=== PATIENT | female | born 1995 | race African-American/Black ===

== ENCOUNTER 2017-03-13 23:15 | Emergency (ER) | payer MEDICAID, OTHER ==
[~2017-03-13] VITALS: Ht 162.6 cm; Wt 96.0 kg
[~2017-03-13 23:15] MED LIST: DOXY100T PO
[2017-03-13 23:16] VITALS: BP 139/69; PULSE 79; RESP 16; TEMP 98.6; O2SAT 99
--- NOTE | 2017-03-13 23:43 | PD ---
HPI Chief Complaint: Injury Time Seen by Provider: 23:35 Travel History International Travel<30 days: No Contact w/Intl Traveler<30days: No Traveled to known affect area: No History of Present Illness HPI 21-year-old female here for evaluation of left forearm pain. The patient reports that she had an injury to her left forearm/wrist about a year ago. About 3 days ago while moving heavy boxes the patient felt a pop in her left wrist/distal forearm. She has had pain in this area since this time. Pain is moderate, constant, worse with movement and palpation. She denies any other injuries. [facility] Past Medical History Asthma: Yes Autoimmune Disease: No Cardiovascular Problems: No Developmental Delay: No Diminished Hearing: No Gastrointestinal Disorders: Yes Genitourinary: Yes Musculoskeletal: No Neurologic: No Psychiatric: No Respiratory: Yes (Asthma) Immunizations Current: Yes Ulcer: No ?: Not LMP: 01/17/17 Menopausal: No : 1 : 1 Social History Alcohol Use: No Tobacco Use: No Substance Use: Yes (MARIJUANA) Allergies-Medications (Allergen,Severity, Reaction): Coded Allergies: Morphine (Verified Allergy, Severe, Tachycardia, 03/13/17) Reported Meds & Prescriptions Reported Meds & Active Scripts Active Review of Systems Except as stated in HPI: all other systems reviewed are Neg Physical Exam Narrative GENERAL: Well-developed, well-nourished, comfortable, no apparent distress. SKIN: Focused skin assessment warm/dry. No lacerations, abrasions, or ecchymosis. CARDIOVASCULAR: Regular rate and rhythm. Bilateral distal radial pulses are brisk and equal. Capillary refill in left hand is less than 2 seconds. MUSCULOSKELETAL: Moderate left distal forearm and left wrist tenderness without obvious deformity. All compartments in left forearm are supple. Normal range of motion in left wrist and left hand. Left hand/upper extremity is neurovascularly intact. NEUROLOGICAL: Awake and alert. No obvious cranial nerve deficits. Motor grossly within normal limits. Normal speech. PSYCHIATRIC: Appropriate mood and affect; insight and judgment normal. Data Data Last Documented VS Vital Signs Date Time Temp Pulse Resp B/P Pulse Ox O2 Delivery O2 Flow Rate FiO2 03/13/17 23:16 98.6 79 16 139/69 99 Room Air Orders Forearm (2vws) (03/13/17 ) [facility] Medical Decision Making Medical Screen Exam Complete: Yes Emergency Medical Condition: Yes Differential Diagnosis Left wrist/forearm sprain versus fracture Narrative Course Left forearm x-ray: FINDINGS: Two view examination of the left forearm demonstrates no evidence of fracture or dislocation. Bony mineralization is normal. The soft tissue structures are intact. CONCLUSION: Negative trauma study Patient was made aware of x-ray findings. Her left wrist will be placed in a Velcro wrist splint. PMD follow-up this week. Patient informed on when to return to the emergency department. She verbalizes understanding and agreement with plan. Diagnosis Primary Impression: Left wrist sprain Qualified Code: S63.502A - Left wrist sprain, initial encounter Referrals: Andrew Harman Jr., MD 1 week Orthopedist Primary Care Physician 3 days Additional Instructions: Follow-up with a primary care physician or an orthopedic surgeon of your choice this week. Return to the emergency department for worsening symptoms or any other concerns. Disposition: 01 DISCHARGE HOME Condition: Stable Carlos Weir MD Mar 13, 2017 23:43
--- NOTE | 2017-03-13 23:58 | RADRPT ---
EXAM DATE/TIME: 03/13/2017 23:55 [place] COMPARISON: No previous studies available for comparison. INDICATIONS : Forearm pain after trauma. MEDICAL HISTORY : None. SURGICAL HISTORY : None. ENCOUNTER: Initial ACUITY: 1 day PAIN SCORE: 1/10 LOCATION: Left forearm FINDINGS: Two view examination of the left forearm demonstrates no evidence of fracture or dislocation. Bony m ineralization is normal. The soft tissue structures are intact. CONCLUSION: Negative trauma study. Chance Morejon MD on March 13, 2017 at 23:56 Board Certified Radiologist. This report was verified electronically.
== END 2017-03-14 00:19 | disposition home or self-care (01) ==
LOC: NEPD 23:15
DX: S63.502A Unspecified sprain of left wrist, initial encounter (principal); X58.XXXA Exposure to other specified factors, initial encounter
CPT/HCPCS: 73090; 99283; L3908

== ENCOUNTER 2017-07-14 01:58 | Emergency (ER) | payer MEDICAID, OTHER ==
[2017-07-14 01:59] VITALS: BP 136/85; PULSE 83; RESP 14; TEMP 98.7; O2SAT 99
[2017-07-14 02:28] VITALS: BP 143/72; PULSE 90; RESP 16; TEMP 98.5; O2SAT 99
[2017-07-14 02:53] VITALS: BP 143/72; PULSE 89; RESP 16
--- NOTE | 2017-07-14 02:58 | PD ---
HPI Chief Complaint: Related Problem Time Seen by Provider: 02:39 Travel History International Travel<30 days: No Contact w/Intl Traveler<30days: No Traveled to known affect area: No History of Present Illness HPI 22-year-old female 3 para 0 AB 1 complains of vaginal bleeding. Patient is about 7 weeks' . Patient was seen by a local clinic 3 days ago and had an ultrasound done at that time. Pelvic ultrasound confirms seven- week intrauterine . Patient has not seen an OB physician for this . Patient started having vaginal spotting tonight. Patient denies abdominal pain or pelvic pain. Patient denies any dysuria or frequency. Patient denies any fever chills. Patient's blood type A+. PFSH Past Medical History Asthma: Yes Autoimmune Disease: No Cardiovascular Problems: No Developmental Delay: No Diminished Hearing: No Gastrointestinal Disorders: Yes Genitourinary: Yes Musculoskeletal: No Neurologic: No Psychiatric: No Respiratory: Yes (Asthma) Immunizations Current: Yes Ulcer: No ?: LMP: 05/18/17 Menopausal: No : 1 : 1 Social History Alcohol Use: No Tobacco Use: No Substance Use: Yes (MARIJUANA) Allergies-Medications (Allergen,Severity, Reaction): Coded Allergies: morphine (Unverified Allergy, Severe, Tachycardia, 07/14/17) Reported Meds & Prescriptions Reported Meds & Active Scripts Active No Active Prescriptions or Reported Medications Review of Systems General / Constitutional: No: Fever Eyes: No: Visual changes HENT: No: Headaches Cardiovascular: No: Chest Pain or Discomfort Respiratory: No: Shortness of Breath Gastrointestinal: No: Abdominal Pain Genitourinary: Positive: Vaginal Bleeding, No: Dysuria Musculoskeletal: No: Pain Skin: No Rash Neurologic: No: Weakness Psychiatric: No: Depression Endocrine: No: Polydipsia Hematologic/Lymphatic: No: Easy Bruising Physical Exam Narrative GENERAL: Well-nourished, well-developed patient. SKIN: Focused skin assessment warm/dry. HEAD: Normocephalic. EYES: No scleral icterus. No injection or drainage. NECK: Supple, trachea midline. No JVD or lymphadenopathy. CARDIOVASCULAR: Regular rate and rhythm without murmurs, gallops, or rubs. RESPIRATORY: Breath sounds equal bilaterally. No accessory muscle use. GASTROINTESTINAL: Abdomen soft, non-tender, nondistended. MUSCULOSKELETAL: No cyanosis, or edema. BACK: Nontender without obvious deformity. No CVA tenderness. DRAGGER exam: Patient has some chronic discharge in the vaginal vault. The cervix is long and thick and closed. Uterus enlarged and nontender on palpation. No adnexal mass or tenderness. Data Data Last Documented VS Vital Signs Date Time Temp Pulse Resp B/P (MAP) Pulse Ox O2 Delivery O2 Flow Rate FiO2 07/14/17 02:28 98.5 90 16 143/72 (95) 99 Room Air MDM Medical Decision Making Medical Screen Exam Complete: Yes Emergency Medical Condition: Yes Differential Diagnosis Differential diagnosis including prednisone be, incomplete AB, completed AB, ectopic . Narrative Course 22-year-old female, 7 weeks , vaginal spotting. Procedures Procedure Narrative Emergency Department Pelvic ultrasound was performed with patient consent. The curvilinear probe was used in the transverse and sagittal views within the suprapubic region revealing single intrauterine . heart rate was active. Diagnosis Primary Impression: Threatened Patient Instructions: General Instructions Additional Instructions: vitamin is directed. Follow-up with local OB physician. Return if increase of vaginal bleeding, abdominal pelvic pain. Med/Other Pt SpecificInfo: No Meds Exist/No RX given Scripts No Active Prescriptions or Reported Meds Disposition: 01 DISCHARGE HOME Condition: Stable Narendra Hernandez MD Jul 14, 2017 02:58
== END 2017-07-14 03:19 | disposition home or self-care (01) ==
LOC: NEPE 01:58
DX: O20.0 Threatened abortion (principal); Z87.09 Personal history of other diseases of the respiratory system; Z87.19 Personal history of other diseases of the digestive system; Z87.448 Personal history of other diseases of urinary system; Z3A.01 Less than 8 weeks gestation of pregnancy
CPT/HCPCS: 99284

== ENCOUNTER 2017-10-15 23:02 | Emergency (ER) | payer MEDICAID ==
--- NOTE | 2017-10-15 23:58 | PD ---
HPI Chief Complaint Abdominal pain Date Seen: Oct 15, 2017 Time Seen: 23:54 Travel History International Travel<30 Days: No Contact w/Intl Traveler<30Days: No Known Affected Area: No History of Present Illness HPI 22-year-old 21 weeks 4 days complains of sharp stabbing abdominal pain that occurred around 9 PM earlier today after eating chicken which she perceived to be "" bad chicken" patient denies nausea vomiting, fever, vaginal bleeding, or contractions. Patient had normal movement. Weeks Gestation: 21 Para: 0 : 3 History Past Medical History Medical History: Denies Significant Hx Obstetric History Obstetric History SAB 1 EAB 1 Past Surgical History Surgical History: No Previous Surgery Family History Family History: Negative Social History Alcohol Use: No Tobacco Use: No Substance Abuse: No Allergies-Medications (Allergen,Severity, Reaction): Coded Allergies: morphine (Unverified Allergy, Severe, Tachycardia, 07/14/17) Home Meds No Active Prescriptions or Reported Meds Review of Systems Except as stated in HPI: all other systems reviewed are Neg Physical Exam Narrative GENERAL: Well-nourished, well-developed patient. SKIN: Warm and dry. HEAD: Normocephalic and atraumatic. EYES: No scleral icterus. No injection or drainage. ENT: No nasal drainage noted. Mucous membranes pink. Airway patent. NECK: Supple, trachea midline. No JVD. CARDIOVASCULAR: Regular rate and rhythm without murmurs, gallops, or rubs. RESPIRATORY: Breath sounds equal bilaterally. No accessory muscle use. ABDOMEN/GI: Abdomen soft, non-tender, bowel sounds present, no rebound, no guarding Gravid to [-] weeks size 20 Fundal Height: [-] GENITOURINARY: Deferred External Genitalia: intact and normal in appearance BUS glands: [-] Cervix: [-] Dilatation: [-] Effacement: [-] Station: [-] Presentation: [-] Membranes: [intact or ruptured] Uterine Contractions: [-] FHT's: 145 Doppler Category: [-] Baseline: [-] Reactive: [-] Variability: [-] Decels: [-] EXTREMITIES: No cyanosis or edema. BACK: Nontender without obvious deformity. No CVA tenderness. NEUROLOGICAL: Awake and alert. Motor and sensory grossly within normal limits. Five out of 5 muscle strength in all muscle groups. Normal speech. Data Data Vital Signs Reviewed: Yes MDM Medical Record Reviewed: Yes Plan 22-year-old at 21 weeks 4 days with some mild stomach upset after dinner No nausea vomiting or diarrhea at this point no signs of dehydration or labor Precautions were given, follow-up with OB provider Diagnosis Diagnosis: Primary Impression: 21 weeks gestation of Additional Impression: Abdominal pain during in second trimester Disposition: DISCHARGE HOME Scripts No Active Prescriptions or Reported Meds Brandee Lopez MD Oct 15, 2017 23:58
== END 2017-10-16 00:07 | disposition home or self-care (01) ==
LOC: HOBED 23:02
DX: O26.892 Other specified pregnancy related conditions, second trimester (principal); R10.9 Unspecified abdominal pain; Z3A.21 21 weeks gestation of pregnancy; Z88.5 Allergy status to narcotic agent
CPT/HCPCS: 99281

== ENCOUNTER 2017-10-29 18:12 | Emergency (ER) | payer MEDICAID ==
[~2017-10-29] VITALS: Ht 162.6 cm; Wt 105.0 kg
[2017-10-29 18:15] VITALS: BP 132/62; PULSE 105; RESP 18; TEMP 98.4; O2SAT 100
[2017-10-29] MEDS ORDERED: CLIN300C5 PO (18:33)
--- NOTE | 2017-10-29 18:38 | PD ---
HPI Chief Complaint: Oral / Dental Pain or Problem Time Seen by Provider: 18:32 Travel History International Travel<30 days: No Contact w/Intl Traveler<30days: No Traveled to known affect area: No History of Present Illness HPI Patient comes emergency department complaining of right lower molar dental pain that began last night describes as aching throbbing pain without radiation. Pain is worse with anything cold touching that area. Patient's been taking Tylenol along with rinsing her mouth with warm salt water gargles that is helped some. Patient reports that she last saw a dentist 6 months ago and had to reschedule her appointment last month. Patient denies any fevers, nausea, vomiting, neck pain, or difficulty swallowing. Patient is . Severity mild. PFSH Past Medical History Asthma: Yes Autoimmune Disease: No Cardiovascular Problems: No Developmental Delay: No Diminished Hearing: No Gastrointestinal Disorders: Yes Genitourinary: Yes Musculoskeletal: No Neurologic: No Psychiatric: No Respiratory: Yes (Asthma) Immunizations Current: Yes Ulcer: No ?: LMP: 05/17/17 Menopausal: No : 1 : 1 Social History Alcohol Use: No Tobacco Use: No Substance Use: Yes (MARIJUANA) Allergies-Medications (Allergen,Severity, Reaction): Coded Allergies: morphine (Unverified Allergy, Severe, Tachycardia, 07/14/17) Reported Meds & Prescriptions Reported Meds & Active Scripts Active Clindamycin (Clindamycin HCl) 300 Mg Cap 300 Mg PO Q6H 10 Days Review of Systems Except as stated in HPI: all other systems reviewed are Neg Physical Exam Narrative GENERAL: Well-developed, well nourished, in no acute distress, and non-ill appearing. SKIN: Focused skin assessment warm and dry. HEAD: Atraumatic. Normocephalic. EYES: Pupils equal and round. EOMI. No scleral icterus. No injection or drainage. ENT: No nasal bleeding or discharge. Mucous membranes pink and moist. Poor dentition with no visible or palpable abscess. Minimal soft tissue swelling over right mandible posteriorly. Floor the mouth, submandibular, and submental are all soft palpation. Patient swallowing on saliva and speaking full sentences without difficulty. NECK: Trachea midline. No cervical lymphadenopathy. Supple. No nuclear rigidity. RESPIRATORY: No accessory muscle use. No respiratory distress. MUSCULOSKELETAL: No obvious deformities. No clubbing. No cyanosis. No edema. Full range of motion. NEUROLOGICAL: Awake and alert. No obvious cranial nerve deficits. Motor grossly within normal limits. Normal speech. PSYCHIATRIC: Appropriate mood and affect; insight and judgment normal. Data Data Last Documented VS Vital Signs Date Time Temp Pulse Resp B/P (MAP) Pulse Ox O2 Delivery O2 Flow Rate FiO2 10/29/17 18:15 98.4 105 18 132/62 (85) 100 MDM Medical Decision Making Medical Screen Exam Complete: Yes Emergency Medical Condition: Yes Differential Diagnosis Dental abscess, dental infection, dentalgia Narrative Course The patient presented with dental pain. There is no fever. There is no significant facial swelling or evidence of cellulitis. There is poor dentition but no evidence of drainable abscess at this time. There is no evidence of significant deep or invading abscess at this time. The patient will be placed on antibiotics and pain medication. The patient was instructed to follow up with a dentist. The patient was given the dental referral sheet. Warnings were discussed with the patient regarding worsening of infection. The patient is to return if pain worsens, develops progressive swelling or facial redness or fever. The patient agrees with plan. Patient in no obvious distress upon re-evaluation. Patient was asked if they wanted to speak to my attending, which the patient did not wish to do at this time. Any questions/concerns in reference to patient diagnosis/condition discussed and clarified prior to patient's discharge. Reinforced sheer importance of close follow up with patient's primary physician or primary care clinic and/or dentist. Instructed patient to return to ED immediately, if symptoms return/worsen. Patient showed understanding of above instructions. Further instructions and recommendations were detailed in discharge paperwork. Patient ambulated without difficulty out of ED at discharge. Diagnosis Primary Impression: Dental infection Patient Instructions: Dental Abscess (GEN), Dental Caries (ED), General Instructions Additional Instructions: Follow-up with your primary care physician and dentist as soon as possible for reevaluation. Rinse mouth with warm salt water gargles. Take all medication as prescribed. Use [id number] Tylenol as needed for pain control. Follow instructions on the packaging. Return to the emergency department if symptoms get worse. Med/Other Pt SpecificInfo: Prescription(s) given Scripts Clindamycin (Clindamycin) 300 Mg Cap 300 MG PO Q6H for Infection for 10 Days, #40 CAP 0 Refills Prov: Carlos Weir MD 10/29/17 Disposition: 01 DISCHARGE HOME Condition: Stable Driss Calhoun Oct 29, 2017 18:38
== END 2017-10-29 19:31 | disposition home or self-care (01) ==
LOC: NEPD 18:12
DX: K04.7 Periapical abscess without sinus (principal); J45.909 Unspecified asthma, uncomplicated; F12.90 Cannabis use, unspecified, uncomplicated
CPT/HCPCS: 99283

== ENCOUNTER 2017-11-05 06:40 | Emergency (ER) | payer MEDICAID ==
[~2017-11-05] VITALS: Ht 162.6 cm; Wt 107.0 kg
[~2017-11-05 06:40] MED LIST changes: +CLIN300C5 PO; -DOXY100T PO
[2017-11-05 07:03] VITALS: BP 115/71; PULSE 113; RESP 16; TEMP 99; O2SAT 99
--- NOTE | 2017-11-05 07:19 | PD ---
HPI Chief Complaint: Skin Problem Time Seen by Provider: 07:18 Travel History International Travel<30 days: No Contact w/Intl Traveler<30days: No Traveled to known affect area: No History of Present Illness HPI 22-year-old female presents emergency department for evaluation of a urticarial- like rash over her trunk and extremities. Patient is being treated for dental abscess on clindamycin. She has been taking this for 2 days. She noticed the rash this morning. Denies any chest pain or tightness. No difficulty breathing. No sensation of oral swelling. Patient has no other symptoms to report. PFSH Past Medical History Asthma: Yes Autoimmune Disease: No Cardiovascular Problems: No Developmental Delay: No Diminished Hearing: No Gastrointestinal Disorders: Yes Genitourinary: Yes Musculoskeletal: No Neurologic: No Psychiatric: No Respiratory: Yes (Asthma) Immunizations Current: Yes Ulcer: No ?: Menopausal: No : 1 : 1 Social History Alcohol Use: No Tobacco Use: No Substance Use: Yes (MARIJUANA) Allergies-Medications (Allergen,Severity, Reaction): Coded Allergies: morphine (Verified Allergy, Severe, hives, 11/05/17) clindamycin (Verified Allergy, Intermediate, hives, 11/05/17) Reported Meds & Prescriptions Reported Meds & Active Scripts Active Penicillin V Potassium 500 Mg Tab 500 Mg PO Q6H 10 Days Clindamycin (Clindamycin HCl) 300 Mg Cap 300 Mg PO Q6H 10 Days Review of Systems Except as stated in HPI: all other systems reviewed are Neg Physical Exam Narrative GENERAL: Well-nourished, well-developed female patient, ambulatory and in no acute distress. SKIN: Focused skin assessment warm/dry. Urticarial-like rash over the trunk and extremities. No vesicle or pustule formation. HEAD: Normocephalic. EYES: No scleral icterus. No injection or drainage. ENT: Mucosa pink and moist. No erythema or exudates. No uvular edema. No uvular , palatal, or tonsillar deviation. Airway patent. Nasal turbinates appear normal without nasal blood, purulent drainage or septal hematoma. NECK: Supple, trachea midline. No JVD or lymphadenopathy. No stridor CARDIOVASCULAR: Regular rate and rhythm without murmurs, gallops, or rubs. RESPIRATORY: Breath sounds equal bilaterally. No accessory muscle use. Clear throughout GASTROINTESTINAL: Abdomen soft, non-tender, nondistended. MUSCULOSKELETAL: No cyanosis, or edema. BACK: Nontender without obvious deformity. No CVA tenderness. Data Data Last Documented VS Vital Signs Date Time Temp Pulse Resp B/P (MAP) Pulse Ox O2 Delivery O2 Flow Rate FiO2 11/05/17 08:35 97.8 77 16 120/81 (94) 100 Orders Orders Iv Access Insert/Monitor (11/05/17 07:25) Diphenhydramine Inj (Benadryl Inj) (11/05/17 07:30) Methylprednisolone So Succ Inj (Solumedr (11/05/17 07:30) Ed Discharge Order (11/05/17 08:27) MDM Medical Decision Making Medical Screen Exam Complete: Yes Emergency Medical Condition: Yes Medical Record Reviewed: Yes Differential Diagnosis Allergic reaction versus contact dermatitis versus folliculitis versus viral exanthem Narrative Course 22-year-old female presents emergency department for evaluation of an urticarial -like rash. History and physical exam is consistent with a drug eruption. Patient is advised to stop taking clindamycin. She will be started on penicillin for her dental abscess. I have encouraged follow-up with a primary care provider and return immediately with any acute worsening symptoms. Diagnosis Primary Impression: Urticaria Referrals: Primary Care Physician Patient Instructions: General Instructions, Urticaria (ED) Additional Instructions: Stop clindamycin Start new antibiotics today Follow-up with the primary care provider Return immediately with any acute worsening of symptoms Med/Other Pt SpecificInfo: Prescription(s) given, Med Stopped Scripts Penicillin V Potassium (Penicillin V Potassium) 500 Mg Tab 500 MG PO Q6H for Infection for 10 Days, #40 TAB 0 Refills Prov: Lubna Novoa 11/05/17 Disposition: 01 DISCHARGE HOME Condition: Stable Lubna Novoa Nov 05, 2017 07:19
[2017-11-05] MEDS ORDERED: methylPREDNISolone SOD SUCC 125 MG/2 ML VIAL IV PUSH ONE (07:30)
[2017-11-05] MEDS ORDERED: diphenhydrAMINE HCL 50 MG/ML VIAL IV PUSH ONE (07:30)
[2017-11-05] MEDS ORDERED: PENI500T PO (08:28)
[2017-11-05 08:35] VITALS: BP 120/81; TEMP 97.8
== END 2017-11-05 08:35 | disposition home or self-care (01) ==
LOC: NED 06:40 → NEPD 08:35
DX: L50.9 Urticaria, unspecified (principal); J45.909 Unspecified asthma, uncomplicated; F12.90 Cannabis use, unspecified, uncomplicated; Z88.5 Allergy status to narcotic agent
CPT/HCPCS: 96374; 96375; 99284; J1200; J2930

== ENCOUNTER 2018-01-03 22:39 | Emergency (ER) | payer MEDICAID ==
[~2018-01-03] VITALS: Ht 162.6 cm; Wt 101.0 kg
[~2018-01-03 22:39] MED LIST changes: +PENI500T PO
[2018-01-03 22:45] VITALS: BP 118/69; PULSE 104; RESP 16; TEMP 98.5; O2SAT 100
[2018-01-03 23:07] VITALS: BP 114/69; PULSE 94; RESP 18; O2SAT 100
--- NOTE | 2018-01-03 23:15 | PD ---
HPI Chief Complaint: Headache Time Seen by Provider: 22:52 Travel History International Travel<30 days: No Contact w/Intl Traveler<30days: No Traveled to known affect area: No History of Present Illness HPI The patient is a 22-year-old female who presents to the emergency department for intermittent headaches. Patient is 33 weeks per her report that is evaluated and followed by a pilot teacher. The patient states she has had some intermittent headaches over the superior occipital area over the last month. They are intermittent, they are not intractable, however, she did have elevated blood pressure earlier today. The patient was reading online and was afraid she may have preeclampsia. The patient states she went to [facility] and her blood pressure was in the 130s/80s. She then came to the emergency department. She states her headache is a 5/10, there is no photophobia, nausea , vomiting, neck pain, and no thunderclap quality. The patient's blood pressure had improved in the emergency department and she was relieved. She notes intermittent lower extremity edema to the legs, but denies any periorbital edema or edema to the fingers. This is her first , she denies any current nausea, vomiting, or abdominal pain. Symptoms are mild. PFSH Past Medical History Asthma: Yes Autoimmune Disease: No Cardiovascular Problems: No Developmental Delay: No Diminished Hearing: No Gastrointestinal Disorders: Yes Genitourinary: Yes Musculoskeletal: No Neurologic: No Psychiatric: No Respiratory: Yes (ASTHMA) Immunizations Current: Yes Ulcer: No Tetanus Vaccination: < 5 Years Influenza Vaccination: No ?: LMP: 05/17/18 Menopausal: No : 1 : 1 Social History Alcohol Use: No Tobacco Use: No Substance Use: Yes (MARIJUANA) Allergies-Medications (Allergen,Severity, Reaction): Coded Allergies: morphine (Verified Allergy, Severe, hives, 01/03/18) clindamycin (Verified Allergy, Intermediate, hives, 01/03/18) Reported Meds & Prescriptions Reported Meds & Active Scripts Active Penicillin V Potassium 500 Mg Tab 500 Mg PO Q6H 10 Days Clindamycin (Clindamycin HCl) 300 Mg Cap 300 Mg PO Q6H 10 Days Review of Systems Except as stated in HPI: all other systems reviewed are Neg Eyes: No: Blurred Vision, Visual changes HENT: Positive: Headaches, No: Neck Pain Cardiovascular: No: Chest Pain or Discomfort Respiratory: No: Shortness of Breath Gastrointestinal: No: Nausea, Vomiting, Abdominal Pain Musculoskeletal: Positive: Edema (Intermittent lower extremity edema) Physical Exam Narrative GENERAL: Awake, alert, nontoxic-appearing 22-year-old female who appears her stated age and is in no acute respiratory distress. SKIN: Focused skin assessment warm/dry. HEAD: Atraumatic. Normocephalic. EYES: Pupils equal and round. 3 mm bilateral and reactive. EOMs are intact. ENT: No nasal bleeding or discharge. Mucous membranes pink and moist. NECK: Trachea midline. No JVD. No tenderness of the cervical vertebrae. Full range of motion. No meningeal signs. CARDIOVASCULAR: Regular rate and rhythm. No murmur appreciated. Heart rate in the 90s. RESPIRATORY: No accessory muscle use. Clear to auscultation. Breath sounds equal bilaterally. GASTROINTESTINAL: Abdomen gravid. MUSCULOSKELETAL: No obvious deformities. No clubbing. No cyanosis. Trace edema lower extremities. No edema of the fingers noted. No periorbital edema noted. NEUROLOGICAL: Awake and alert. No obvious cranial nerve deficits. Motor grossly within normal limits. Normal speech. Nonfocal. PSYCHIATRIC: Appropriate mood and affect; insight and judgment normal. Data Data Last Documented VS Vital Signs Date Time Temp Pulse Resp B/P (MAP) Pulse Ox O2 Delivery O2 Flow Rate FiO2 01/03/18 23:07 94 18 100 Room Air 01/03/18 23:07 114/69 (84) 01/03/18 22:45 98.5 Orders Orders Ed Discharge Order (01/03/18 23:11) [facility] Medical Decision Making Medical Screen Exam Complete: Yes Emergency Medical Condition: Yes Medical Record Reviewed: Yes Differential Diagnosis Differential diagnosis includes tension headache, subarachnoid hemorrhage, preeclampsia, help syndrome, , migraine, intracranial hemorrhage, tumor. Narrative Course The patient had to several blood pressure readings that were within normal limits. Trace edema lower extremities but no significant edema to the fingers noted. I doubt preeclampsia. Patient declined Tylenol in the emergency department. She is advised to follow-up with an principal research economist. Return if symptoms worsen or progress. Diagnosis Primary Impression: Cephalgia Qualified Codes: R51 - Headache Patient Instructions: General Instructions Additional Instructions: Follow-up with an principal research economist. Return if symptoms worsen or progress. Elevate legs as needed. Tylenol as needed for intermittent headaches. Med/Other Pt SpecificInfo: No Change to Meds Disposition: 01 DISCHARGE HOME Condition: Stable Trent Galeana MD January 03, 2018 23:15
== END 2018-01-03 23:22 | disposition home or self-care (01) ==
LOC: PHED 22:39
DX: R51 Headache (principal); O26.893 Other specified pregnancy related conditions, third trimester; J45.909 Unspecified asthma, uncomplicated
CPT/HCPCS: 99282

== ENCOUNTER 2018-01-17 17:58 | Emergency (ER) | payer MEDICAID ==
[2018-01-17 19:26] LABS: BICARBONATE 19.5 MEQ/L (21.0-32.0); CREATININE 0.72 MG/DL (0.50-1.00)
--- NOTE | 2018-01-17 19:45 | PD ---
HPI Chief Complaint Patient sent over from [facility] for evaluation of high blood sugar and glucose in the urine Date Seen: Jan 17, 2018 Time Seen: 19:36 Travel History International Travel<30 Days: No Contact w/Intl Traveler<30Days: No Known Affected Area: No History of Present Illness HPI Patient is 22-year-old black female at 35 -36 weeks gestation who sees [facility] for care and was noted in her office to be spilling sugar in her urine, she then had a fingerstick blood sugar either she did at home or somewhere else possibly even at her clinic and the patient tells me it was 202. So she presents here. She also thought her blood pressure was elevated however it is within normal limits she also complains of her feet swelling, she has no bleeding or leakage of fluid, no abdominal pain the way she is having an occasional contraction and the NST is reactive Weeks Gestation: 35 Para: 0 : 3 Miscarriage: 2 History Obstetric History Obstetric History 2 early losses Social History Alcohol Use: No Tobacco Use: No Substance Abuse: No Allergies-Medications (Allergen,Severity, Reaction): Coded Allergies: morphine (Verified Allergy, Severe, hives, 01/03/18) clindamycin (Verified Allergy, Intermediate, hives, 01/03/18) Home Meds Active Scripts Penicillin V Potassium (Penicillin V Potassium) 500 Mg Tab, 500 MG PO Q6H for Infection for 10 Days, #40 TAB 0 Refills Prov:Lubna Novoa 11/05/17 Clindamycin (Clindamycin) 300 Mg Cap, 300 MG PO Q6H for Infection for 10 Days, # 40 CAP 0 Refills Prov:Carlos Weir MD 10/29/17 Review of Systems General / Constitutional: No: Fever, Weight Gain, Chills, Other Eyes: No: Diploplia, Blurred Vision, Visual changes, Pain, Photophobia HENT: No: Headaches, Vertigo, Lightheadedness Cardiovascular: No: Irregular Rhythm, Chest Pain or Discomfort, Palpitations, Tachycardia, Syncope, Varicosities, Edema, Cyanosis Respiratory: No: Cough, Short of Breath, Other Gastrointestinal: No: Nausea, Vomiting, Diarrhea Genitourinary: No: Decreased Urinary Output, Oliguria Musculoskeletal: No: Limited ROM, Weakness, Cramping, Edema, Pain Skin: No Rash, No Itching, No Dryness, No Lumps, No Change in Pigmentation, No Change in Nails, No Alopecia, No Lesions Neurologic: No: Weakness, Dizziness, Syncope, Focal Abnormalities, Coordination Problem, Headache, Slurred Speech, Seizures Psychiatric: No: Depression, Suicidal Ideations, Homicidal Ideation Endocrine: No: Heat Intolerance, Cold Intolerance, Polydipsia, Polyuria, Other Physical Exam Narrative GENERAL: Well-nourished, well-developed patient. SKIN: Warm and dry. HEAD: Normocephalic and atraumatic. EYES: No scleral icterus. No injection or drainage. ENT: No nasal drainage noted. Mucous membranes pink. Airway patent. NECK: Supple, trachea midline. No JVD. CARDIOVASCULAR: Regular rate and rhythm without murmurs, gallops, or rubs. RESPIRATORY: Breath sounds equal bilaterally. No accessory muscle use. BREASTS: Bilateral exam showed no masses , no retractions, no nipple discharge. ABDOMEN/GI: Abdomen soft, non-tender, bowel sounds present, no rebound, no guarding Gravid to [-35] weeks size Fundal Height: [-35] GENITOURINARY: Membranes: [intact ] Uterine Contractions: [occasional-] FHT's: Category: [1-] Baseline: [133-] Reactive: [-R] Variability: [mod-] Decels: [-0] EXTREMITIES: No cyanosis or edema. BACK: Nontender without obvious deformity. No CVA tenderness. NEUROLOGICAL: Awake and alert. Motor and sensory grossly within normal limits. Five out of 5 muscle strength in all muscle groups. Normal speech. Data Data Orders Orders Basic Metabolic Panel (Bmp) (01/17/18 18:27) Labs Laboratory Tests Test 01/17/18 18:34 Blood Urea Nitrogen 5 Creatinine 0.72 Random Glucose 143 Calcium Level 9.0 Sodium Level 139 Potassium Level 3.8 Chloride Level 107 Carbon Dioxide Level 19.5 Anion Gap 13 Estimat Glomerular Filtration Rate 124 MDM Interpretation(s) Patient is 22-year-old black female 35-36 weeks who presents from [facility] for rule out high blood sugar, her blood sugar on BMP today here in OB ED is 143 random all other chemistries within normal limits ,, her NST is reactive and she is having an occasional contraction. Patient did not get the typical screening for diabetes in by [facility] she did not drink a Glucola and have her blood drawn she just fasted for 12 hours and then had a random blood sugar done which was within normal limits and no other screening was done. And now she is 35 weeks almost 36 weeks to little late to really try and do any screening of significance. Plan I recommend the patient begin a low sugar diet, and then she can check her own blood sugars at home with a home monitor that she can get it [employer] and see what her blood sugar is fasting and then 2 hours after some meal and write those down and bring them in and show her patrol guard Diagnosis Diagnosis: Primary Impression: Hyperglycemia during Additional Impression: 35 weeks gestation of Disposition: 01 DISCHARGE HOME Condition: Stable Ronald Smith II, MD Jan 17, 2018 19:45
== END 2018-01-17 19:46 | disposition home or self-care (01) ==
LOC: HOBED 17:58
DX: O99.89 Other specified diseases and conditions complicating pregnancy, childbirth and the puerperium (principal); R73.9 Hyperglycemia, unspecified; M79.89 Other specified soft tissue disorders; Z3A.35 35 weeks gestation of pregnancy
CPT/HCPCS: 36415; 59025; 80048

== ENCOUNTER 2018-01-26 12:39 | Emergency (ER) | payer MEDICAID ==
--- NOTE | 2018-01-26 13:31 | PD ---
HPI Chief Complaint decr FM Date Seen: Jan 26, 2018 Time Seen: 13:22 Travel History International Travel<30 Days: No Contact w/Intl Traveler<30Days: No Known Affected Area: No History of Present Illness HPI 22y/o @ 36.2wks. Pt has PNC with [facility]. She was seen today in clinic and reported decr FM. She was sent to triage for evaluation. Pt also reports that she is measuring "big" and has swelling. She states she also needs an Rx for lancets/test strips as she was "just dx'd with diabetes" and KK is unable to write for these. Pt states she did not have a 1hr glucola but that KK had her fast for 12hrs and her glucose level was 115. This week she did a 3hr GTT and had one abnormal value but it was 210. She is diet controlled at this time. Denies LOF, VB, ctx. Weeks Gestation: 36 Para: 0 : 3 History Past Medical History Medical History: Denies Significant Hx Obstetric History Obstetric History SAB TAB current Past Surgical History Surgical History: No Previous Surgery Family History Family History: Negative Social History Alcohol Use: No Tobacco Use: No Substance Abuse: No Allergies-Medications (Allergen,Severity, Reaction): Coded Allergies: morphine (Verified Allergy, Severe, hives, 01/03/18) clindamycin (Verified Allergy, Intermediate, hives, 01/03/18) Home Meds Active Scripts Penicillin V Potassium (Penicillin V Potassium) 500 Mg Tab, 500 MG PO Q6H for Infection for 10 Days, #40 TAB 0 Refills Prov:Lubna Novoa 11/05/17 Clindamycin (Clindamycin) 300 Mg Cap, 300 MG PO Q6H for Infection for 10 Days, # 40 CAP 0 Refills Prov:Carlos Weir MD 10/29/17 Review of Systems Except as stated in HPI: all other systems reviewed are Neg Physical Exam Narrative General: well developed, well nourished, no acute distress HEENT: normocephalic atraumatic, extraocular movements intact, neck supple Abdomen: soft, gravid, nontender, nondistended Uterus: fundus palpates soft, fundal height 39cm Extremities: full range of motion Skin: normal coloration, no rashes, no suspicious skin lesions noted Neurologic: cranial nerves 2-12 grossly intact, normal muscle tone, normal gait Psychiatric: normal mood and affect, appropriate FHTs: 130s, +accels, no decels, moderate variability, reactive immediately [place]: irregular ctx (not felt by pt) Cvx: deferred Data Data Vital Signs Reviewed: Yes Orders Orders Vital Signs (Adult) .ON ADMISSION (01/26/18 13:21) ^ Labor Status (01/26/18 13:21) ^ Non Stress Test (01/26/18 13:21) MDM Plan 22y/o @ 36.wks with decr FM and A1DM. -- NST immediately reactive within 2 minutes -- pt counseled on kick counts and reassurance provided -- Rx provided for test strips and lancets Dispo: f/u as scheduled for routine [facility] Diagnosis Diagnosis: Primary Impression: 36 weeks gestation of Additional Impressions: Decreased movement White classification A1 gestational diabetes mellitus (GDM) Luis Diaz MD Jan 26, 2018 13:31
== END 2018-01-26 13:38 | disposition home or self-care (01) ==
LOC: HOBED 12:39
DX: O24.410 Gestational diabetes mellitus in pregnancy, diet controlled (principal); O36.8130 Decreased fetal movements, third trimester, not applicable or unspecified; Z3A.36 36 weeks gestation of pregnancy
CPT/HCPCS: 99283

== ENCOUNTER 2018-02-14 12:54 | Inpatient (IN) ==
--- NOTE | 2018-02-14 15:31 | P.PN ---
Subjective Interval history: The patient is a 22-year-old 010, IUP at 39.0 by good dating with her LMP and an 8 week ultrasound. The patient presented from [facility] for growth assessment with fundal height 45 cm at 39 weeks gestation. Ultrasound showed single intrauterine in cephalic presentation with a biophysical profile of 03/22 and estimated weight of 3990 g which is 80th percentile for her gestational age. The patient reports that her fasting blood sugars have never been less than 105 and typically run between 110 and 120. She reports that her 1 hour postprandials are typically in the range of the high 130s-170s. She reports that they are as high as in the 190s, but have never been lower than 132 since she was diagnosed at 36 weeks. She has been attempting to follow a diabetic diet. We discussed the risks, benefits, and alternatives to induction of labor. We discussed the risks include an increased chance of requiring a delivery which carries with additional risks to her. We discussed the risk of shoulder dystocia which may result in permanent and irreversible neurological injury to the baby including brain damage, neurological injuries to the arm that may prohibit the child from using his arm in the future, and even . We discussed acog recommendations of delivery at 10 pounds. The patient states that she is willing to accept these risks to have a trial for a vaginal delivery and declines a delivery even with the above-mentioned risks. We also discussed maternal risks. We will proceed with induction of labor for poorly controlled diabetes at term. Physical Exam Vital signs: Vital Signs 02/14/18 13:35 02/14/18 13:44 02/14/18 13:45 Temperature 98.1 F Pulse Rate 91 H Respiratory Rate 18 Blood Pressure 134/72
--- NOTE | 2018-02-14 15:49 | ED ---
History of Present Illness Primary Care Physician: UNKNOWN - Inpatient Certification I certify that the inpatient services were ordered in accordance with Medicare regulations governing the order. This includes certification that hospital inpatient services are reasonable and necessary and in the case of services not specified as inpatient-only under 42 CFR 419.22(n), that they are appropriately provided as inpatient services in accordance to with the 2-midnight benchmark under 43 CFR 412.3(e) Medications and Allergies Allergies Allergy/AdvReac Type Severity Reaction Status Date / Time morphine Allergy Severe hives Verified 01/03/18 22:44 clindamycin Allergy Intermediate hives Verified 01/03/18 22:44 Home Medications Medication Instructions Recorded Confirmed Type inhaler,assist devices,access 02/15/18 02/15/18 History Results - Labs CBC & Chem 7: 02/17/18 08:05 Assessment and Plan Discharge Plan - Discharge Disposition Patient Disposition: 01 Discharge Home - Discharge Condition Condition: Good - Discharge Order Discharge Orders: Discharge Order (Routine); Ordered 02/19/18 Ordered By: Sailaja Jhaveri - Physicians Team Primary Care Provider: UNKNOWN, Attending Provider: Shira Schmid
[2018-02-14] MEDS ORDERED: fentaNYL Citrate Inj 100 MCG/2 ML Ampul IV.PUSH PRN (16:44)
[2018-02-14] MEDS ORDERED: Sodium Chlor 0.9% Inj 500 ML IV.SIG ONE (16:44)
[2018-02-14] MEDS ORDERED: Citric Acid/Sodium Citrate Liq 15 ML UDC PO SCH (16:45)
[2018-02-14] MEDS ORDERED: Sod Chloride 0.9% Inj 1,000 ML IV.CONT SCH (16:45)
[2018-02-14] MEDS ORDERED: Oxytocin 30 Units/500ml Premix 30 UNITS/500 ML BAG IV.SIG ONE (16:52)
--- NOTE | 2018-02-14 17:16 | P.HPUP ---
<Sailaja Jhaveri - Last Filed: 02/14/18 17:22> Triage/Final Diagnosis - Visit Information Date of evaluation: 02/14/18 Comments/Additional reasons for admission: Poorly controlled GDM - Evaluation Baseline heart rate: 145 Variability: Moderate (11-25) monitor accelerations: Present monitor decelerations: None Vital signs: Vital Signs - 24 hr 02/14/18 13:35 02/14/18 13:44 02/14/18 13:45 Temperature 98.1 F Pulse Rate 91 H Respiratory Rate 18 Blood Pressure 134/72 - Final Diagnosis (1) Gestational diabetes mellitus (GDM) Current Visit: Yes Status: Acute PMFSH - - Past Medical History Medical history: Reports: asthma DIVISION LEADER history: Reports: Other (1 elective , 1 miscarriage) Patient : Yes (39 weeks) Family history: Reports: other (FMH of "large babies", DM in the father's side) - Social History Smoking Status: Never smoker Substance use type: does not use History of Present Illness Primary Care Physician: UNKNOWN Chief Complaint: "Measuring large" History of Present Illness: Ms. Liriano is a 22yo at 39/0 who presents after being diagnosed with GDM and continuously "measuring large". At 36 weeks the patient was diagnosed with GDM. She is poorly controlled with diet. Her blood sugars typically run 100-120' s but have been as high as 190. She does endorse headache and spotty vision starting in her 2nd trimester. She was sent to the hospital for u/s evaluation of the fetus. She denies any fluid leakage, vaginal bleeding, or decreased movement. She has no chest pain, pelvic pain, or difficulty breathing. Weeks Gestation:: 39 Total # of Miscarriage(s): 1 Total # of Abortions (Spontaneous & Elective): 1 - Inpatient Certification If this patient has been admitted as an Inpatient: I certify that the inpatient services were ordered in accordance with Medicare regulations governing the order. This includes certification that hospital inpatient services are reasonable and necessary and in the case of services not specified as inpatient-only under 42 CFR 419.22(n), that they are appropriately provided as inpatient services in accordance to with the 2-midnight benchmark under 43 CFR 412.3(e) Physical Exam Vital signs: Temp Pulse Resp BP 98.1 F 91 H 18 134/72 02/14/18 13:45 02/14/18 13:35 02/14/18 13:44 02/14/18 13:35 - Constitutional no acute distress, obese - Routine Respiratory Exam Present: CTA bilaterally. Absent: accessory muscle use, stridor, wheezes - Routine Abdominal Exam Present: normoactive bowel sounds. Absent: tenderness - Detailed Labor and Delivery Exam Baseline heart rate: 150 monitor accelerations: Present monitor decelerations: None MCFP variability: Moderate (11-25) - Routine Extremities Exam Present: edema (Trace), pulses intact Assessment and Plan - Diagnosis (1) Gestational diabetes mellitus (GDM) Code(s): O24.419 - Gestational diabetes mellitus in , unspecified control Status: Acute Qualifiers: Trimester: third trimester - Plan Plans for admit to labor and delivery for poorly controlled GDM at term. Risks of vaginal delivery with fetus at current size were discussed. Patient elects to proceed with induction of labor. Cervidil will be placed tonight. Blood glucose checks q4 hrs Diabetic diet Pt SDW Tayler Schmid and Miguel <Shira Schmid - Last Filed: 03/24/18 16:26> The Pre-Admit History and Physical Examination regarding the above named patient was reviewed (including, but not limited to, vital signs, heart, lungs, co-morbid conditions), and upon re-examination it is noted that: the patient's condition has not significantly changed since the last examination.
[2018-02-14 17:50] LABS: Baso % (Auto) 0.3 % (0.0-2.0); Eos % (Auto) 0.2 % (0.0-4.0); Hematocrit 39.8 % (35.0-46.0); Hemoglobin 13.7 gm/dL (11.6-15.3); Lymph # (Auto) 1.3 th/mm3 (1.0-4.8); Lymph % (Auto) 12.1 % (9.0-44.0); Mean Corpuscular HGB Conc 34.3 % (32.0-36.0); Mean Corpuscular Volume 87.3 fL (80.0-100.0); Mean Platelet Volume 9.6 fL (7.0-11.0); Mono # (Auto) 0.4 th/mm3 (0.0-0.9); Mono % (Auto) 3.5 % (0.0-8.0); Neut # (Auto) 9.2 th/mm3 (1.8-7.7); Neut % (Auto) 83.9 % (16.0-70.0); Platelet Count 237 th/mm3 (150-450); Red Blood Count 4.56 mil/mm3 (4.00-5.30); Red Cell Distribution Width 13.6 % (11.6-17.2)
[2018-02-14 18:03] LABS: Amphetamine Urine With Conf Neg (Neg); Benzodiazepine Urine With Conf Neg (Neg)
--- NOTE | 2018-02-14 18:07 | P.OBLABOR ---
Subjective Interval history: Dr Rivera placed Cervidil at 5:50PM on 02/14/18. Cervix noted to be 1-2/50/-2. FHT with Cat 1 tracing, Baseline 155, reactive, moderate, absent decels. Objective Vital Signs: Vital Signs - 8 hr 02/14/18 13:35 02/14/18 13:44 02/14/18 13:45 Temperature 98.1 F Pulse Rate 91 H Respiratory Rate 18 Blood Pressure 134/72 02/14/18 16:16 Temperature Pulse Rate 97 H Respiratory Rate Blood Pressure 125/74 Objective: Pelvic Exam: Cervix: open Dilatation: 1-2 Effacement: 50 Station: -2 Presentation: vtx Membranes: intact Uterine Contractions: q3-5minutes FHT's: Category: 1 Baseline: 155 Reactive: yes Variability: moderate Decels: absent Medical Induction of Labor: Yes Medical Induction Start Date: 02/14/18 Medical Induction Start Time: 17:50 Assessment and Plan - Diagnosis (1) Gestational diabetes mellitus (GDM) Code(s): O24.419 - Gestational diabetes mellitus in , unspecified control Status: Acute Plan: Admitting for delivery due to poorly controlled GDM. Cervidil placed 5:50PM. Cervix 1-2/50/-2. FHT Cat 1 with baseline 155, reactive, moderate, and no decels 1. IUP with induction of labor -Monitor and toco -Cat 1 tracing Pt DW Tayler Schmid and Shakila - Plan Plans for admit to labor and delivery for poorly controlled GDM at term. Risks of vaginal delivery with fetus at current size were discussed. Patient elects to proceed with induction of labor. Pt SDW Tayler Schmid and Miguel (1) Gestational diabetes mellitus (GDM) Qualifiers: Trimester: third trimester
--- NOTE | 2018-02-14 22:05 | P.PN ---
Subjective Interval history: Patient is a , admitted for poorly controlled GDM at 39 weeks. Discussed IOL, methods, cervidil placed without incident. Will order HgbA1C. Physical Exam Vital signs: Vital Signs 02/14/18 13:35 02/14/18 13:44 02/14/18 13:45 Temperature 98.1 F Pulse Rate 91 H Respiratory Rate 18 Blood Pressure 134/72 02/14/18 16:16 02/14/18 16:30 02/14/18 17:57 Temperature 98.6 F Pulse Rate 97 H 98 H Respiratory Rate 18 18 Blood Pressure 125/74 131/64 02/14/18 18:46 02/14/18 19:07 02/14/18 20:00 Temperature 98.5 F Pulse Rate 105 H 97 H 92 H Respiratory Rate 16 18 Blood Pressure 128/75 134/61 129/76 Intake & Output 02/14/18 02/14/18 02/15/18 06:59 18:59 06:59 Weight 113.376 kg Other: Weight On Admission 113.376 kg Results - Labs CBC & Chem 7: 02/14/18 17:25 Laboratory Results - last 24 hr 02/14/18 02/14/18 02/14/18 17:25 17:25 17:25 WBC 11.0 RBC 4.56 Hgb 13.7 Hct 39.8 MCV 87.3 MCH 30.0 MCHC 34.3 RDW 13.6 Plt Count 237 MPV 9.6 Neut % (Auto) 83.9 H Lymph % (Auto) 12.1 [place] % (Auto) 3.5 Eos % (Auto) 0.2 Baso % (Auto) 0.3 Neut # (Auto) 9.2 H Lymph # (Auto) 1.3 [place] # (Auto) 0.4 Eos # (Auto) 0.0 Baso # (Auto) 0.0 WBC Differential . Differential Comment Auto diff final POC Glucose Urine Opiates Screen Neg Ur Barbiturates Screen Neg Ur Amphetamine Screen Neg U Benzodiazepines Scrn Neg Urine Cocaine Screen Neg U Cannabinoids Screen Neg Blood Type A Positive 02/14/18 02/14/18 17:34 20:47 WBC RBC Hgb Hct MCV MCH MCHC RDW Plt Count MPV Neut % (Auto) Lymph % (Auto) [place] % (Auto) Eos % (Auto) Baso % (Auto) Neut # (Auto) Lymph # (Auto) [place] # (Auto) Eos # (Auto) Baso # (Auto) WBC Differential Differential Comment POC Glucose 131 H 128 H Urine Opiates Screen Ur Barbiturates Screen Ur Amphetamine Screen U Benzodiazepines Scrn Urine Cocaine Screen U Cannabinoids Screen Blood Type
[2018-02-14 22:18] LABS: Bacteria,Urine Occasional /hpf; Bilirubin,Urine Negative (Negative); Clarity,Urine Clear (Clear); Color,Urine Yellow (Yellw/Straw); Glucose,Urine (UA) Negative (Negative); Leukocyte Esterase,Urine Trace (Negative); Nitrite,Urine Negative (Negative); Specific Gravity,Urine 1.013 (1.002-1.035)
--- NOTE | 2018-02-14 23:11 | P.PN ---
Subjective Interval history: I was called to bedside as patient was complaining of an episode of chest tightness and shortness of breath. This episode lasted less than 5 minutes and had entirely resolved on my presentation to the room. The patient reports this occurred when she got up to use the restroom but has now resolved with repositioning in bed. Patient reports a history of asthma and anxiety. Her blood pressure and heart rate are stable, SPO2 88-92%. The patient does however have acrylic nails and nail gabonese on. Upon evaluation she is resting comfortably in bed and in no apparent distress. Her lungs are clear to auscultation bilaterally. She has no use of accessory muscles or bleeding. Her heart has a regular rate and rhythm. Will obtain ABG. Will order albuterol nebs as needed and Vistaril as needed. Will place oxygen after ABG obtained. Continue close observation. heart tones are in the 150s with moderate long-term variability, good accelerations, no decelerations noted. Will continue current plan and monitor patient closely. Physical Exam Vital signs: Vital Signs 02/14/18 13:35 02/14/18 13:44 02/14/18 13:45 Temperature 98.1 F Pulse Rate 91 H Respiratory Rate 18 Blood Pressure 134/72 02/14/18 16:16 02/14/18 16:30 02/14/18 17:57 Temperature 98.6 F Pulse Rate 97 H 98 H Respiratory Rate 18 18 Blood Pressure 125/74 131/64 02/14/18 18:46 02/14/18 19:07 02/14/18 20:00 Temperature 98.5 F Pulse Rate 105 H 97 H 92 H Respiratory Rate 16 18 Blood Pressure 128/75 134/61 129/76 02/14/18 22:25 02/14/18 22:38 02/14/18 22:44 Temperature 98.7 F Pulse Rate 83 Respiratory Rate 20 Blood Pressure 130/55 L 02/14/18 22:55 Temperature Pulse Rate 87 Respiratory Rate Blood Pressure Intake & Output 02/14/18 02/14/18 02/15/18 06:59 18:59 06:59 Weight 113.376 kg Other: Weight On Admission 113.376 kg Results - Labs CBC & Chem 7: 02/14/18 17:25 Laboratory Results - last 24 hr 07/03/18 07/03/18 07/03/18 17:25 17:25 17:25 WBC 11.0 RBC 4.56 Hgb 13.7 Hct 39.8 MCV 87.3 MCH 30.0 MCHC 34.3 RDW 13.6 Plt Count 237 MPV 9.6 Neut % (Auto) 83.9 H Lymph % (Auto) 12.1 [place] % (Auto) 3.5 Eos % (Auto) 0.2 Baso % (Auto) 0.3 Neut # (Auto) 9.2 H Lymph # (Auto) 1.3 [place] # (Auto) 0.4 Eos # (Auto) 0.0 Baso # (Auto) 0.0 WBC Differential . Differential Comment Auto diff final POC Glucose Urine Color Urine Clarity Urine pH Ur Specific [place] Urine Protein Urine Glucose (UA) Urine Ketones Urine Occult Blood Urine Nitrate Urine Bilirubin Urine Urobilinogen Ur Leukocyte Esterase Urine RBC Urine WBC Urine Bacteria Micro UA Comment Urine Culture Comments Urine Opiates Screen Neg Ur Barbiturates Screen Neg Ur Amphetamine Screen Neg U Benzodiazepines Scrn Neg Urine Cocaine Screen Neg U Cannabinoids Screen Neg Blood Type A Positive 02/14/18 02/14/18 02/14/18 17:25 17:34 20:47 WBC RBC Hgb Hct MCV MCH MCHC RDW Plt Count MPV Neut % (Auto) Lymph % (Auto) [place] % (Auto) Eos % (Auto) Baso % (Auto) Neut # (Auto) Lymph # (Auto) [place] # (Auto) Eos # (Auto) Baso # (Auto) WBC Differential Differential Comment POC Glucose 131 H 128 H Urine Color Yellow Urine Clarity Clear Urine pH 7.0 Ur Specific [place] 1.013 Urine Protein Negative Urine Glucose (UA) Negative Urine Ketones 20 Urine Occult Blood Small H Urine Nitrate Negative Urine Bilirubin Negative Urine Urobilinogen Less than 2 Ur Leukocyte Esterase Trace H Urine RBC Less than 1 Urine WBC Less than 1 Urine Bacteria Occasional H Micro UA Comment Culture not ind Urine Culture Comments Culture not ind Urine Opiates Screen Ur Barbiturates Screen Ur Amphetamine Screen U Benzodiazepines Scrn Urine Cocaine Screen U Cannabinoids Screen Blood Type
[2018-02-14 23:36] LABS: ABG Base Excess -3.4 mmol/L (-2-2); ABG PCO2 31 mmHg (38-42); ABG PO2 119 mmHG (61-120)
[2018-02-15] MEDS ORDERED: fentaNYL Citrate Inj 100 MCG/2 ML Ampul IV.PUSH PRN (04:30)
[2018-02-15] MEDS: fentaNYL Citrate Inj 100 MCG/2 ML Ampul IV.PUSH PRN ×2 (05:13→22:35)
[2018-02-15] MEDS: Oxytocin 30 Units/500ml Premix 30 UNITS/500 ML BAG IV.CONT PRN (09:15)
--- NOTE | 2018-02-15 09:18 | P.PN ---
Subjective Interval history: Opiates she Subjective: Patient is overall comfortable, has received fentanyl for pain control O. VSSA F heart tones are reassuring and appropriate for gestational age with category 1 heart rate tracing SVE: 250/-3 Assessment/plan 1. IUP at 39.1 2. Poorly controlled gestational diabetes: Patient was admitted for induction of labor due to poorly controlled gestational diabetes at term 3. GBS negative 4. Reassuring testing, will continue monitoring Physical Exam Vital signs: Vital Signs 02/14/18 13:35 02/14/18 13:44 02/14/18 13:45 Temperature 98.1 F Pulse Rate 91 H Respiratory Rate 18 Blood Pressure 134/72 02/14/18 16:16 02/14/18 16:30 02/14/18 17:57 Temperature 98.6 F Pulse Rate 97 H 98 H Respiratory Rate 18 18 Blood Pressure 125/74 131/64 02/14/18 18:46 02/14/18 19:07 02/14/18 20:00 Temperature 98.5 F Pulse Rate 105 H 97 H 92 H Respiratory Rate 16 18 Blood Pressure 128/75 134/61 129/76 02/14/18 22:25 02/14/18 22:38 02/14/18 22:44 Temperature 98.7 F Pulse Rate 83 Respiratory Rate 20 Blood Pressure 130/55 L 02/14/18 22:55 02/14/18 23:00 02/14/18 23:20 Temperature Pulse Rate 87 80 82 Respiratory Rate Blood Pressure 02/14/18 23:30 02/14/18 23:38 02/14/18 23:41 Temperature 98.2 F Pulse Rate 83 Respiratory Rate 18 Blood Pressure 02/14/18 23:43 02/15/18 05:00 02/15/18 06:24 Temperature 97.9 F Pulse Rate 73 67 Respiratory Rate 18 14 Blood Pressure 124/64 117/66 02/15/18 07:13 Temperature 98.3 F Pulse Rate 61 Respiratory Rate 20 Blood Pressure 100/42 L Intake & Output 02/14/18 02/15/18 02/15/18 18:59 06:59 18:59 Weight 113.376 kg Other: Weight On Admission 113.376 kg Results - Labs CBC & Chem 7: 02/14/18 17:25 Laboratory Results - last 24 hr 02/14/18 02/14/18 02/14/18 17:25 17:25 17:25 WBC 11.0 RBC 4.56 Hgb 13.7 Hct 39.8 MCV 87.3 MCH 30.0 MCHC 34.3 RDW 13.6 Plt Count 237 MPV 9.6 Neut % (Auto) 83.9 H Lymph % (Auto) 12.1 [place] % (Auto) 3.5 Eos % (Auto) 0.2 Baso % (Auto) 0.3 Neut # (Auto) 9.2 H Lymph # (Auto) 1.3 [place] # (Auto) 0.4 Eos # (Auto) 0.0 Baso # (Auto) 0.0 WBC Differential . Differential Comment Auto diff final Puncture Site Patient Temperature O2 Saturation ABG pH ABG pCO2 ABG pO2 ABG HCO3 ABG O2 Content ABG Base Excess ABG Methemoglobin Robert Test Hemoglobin Carboxyhemoglobin O2 Delivery Device Inspired O2 Critical Value POC Glucose Urine Color Urine Clarity Urine pH Ur Specific [place] Urine Protein Urine Glucose (UA) Urine Ketones Urine Occult Blood Urine Nitrate Urine Bilirubin Urine Urobilinogen Ur Leukocyte Esterase Urine RBC Urine WBC Urine Bacteria Micro UA Comment Urine Culture Comments Urine Opiates Screen Neg Ur Barbiturates Screen Neg Ur Amphetamine Screen Neg U Benzodiazepines Scrn Neg Urine Cocaine Screen Neg U Cannabinoids Screen Neg Blood Type A Positive 02/14/18 02/14/18 02/14/18 17:25 17:34 20:47 WBC RBC Hgb Hct MCV MCH MCHC RDW Plt Count MPV Neut % (Auto) Lymph % (Auto) [place] % (Auto) Eos % (Auto) Baso % (Auto) Neut # (Auto) Lymph # (Auto) [place] # (Auto) Eos # (Auto) Baso # (Auto) WBC Differential Differential Comment Puncture Site Patient Temperature O2 Saturation ABG pH ABG pCO2 ABG pO2 ABG HCO3 ABG O2 Content ABG Base Excess ABG Methemoglobin Robert Test Hemoglobin Carboxyhemoglobin O2 Delivery Device Inspired O2 Critical Value POC Glucose 131 H 128 H Urine Color Yellow Urine Clarity Clear Urine pH 7.0 Ur Specific [place] 1.013 Urine Protein Negative Urine Glucose (UA) Negative Urine Ketones 20 Urine Occult Blood Small H Urine Nitrate Negative Urine Bilirubin Negative Urine Urobilinogen Less than 2 Ur Leukocyte Esterase Trace H Urine RBC Less than 1 Urine WBC Less than 1 Urine Bacteria Occasional H Micro UA Comment Culture not ind Urine Culture Comments Culture not ind Urine Opiates Screen Ur Barbiturates Screen Ur Amphetamine Screen U Benzodiazepines Scrn Urine Cocaine Screen U Cannabinoids Screen Blood Type 02/14/18 02/15/18 02/15/18 23:12 01:24 06:05 WBC RBC Hgb Hct MCV MCH MCHC RDW Plt Count MPV Neut % (Auto) Lymph % (Auto) [place] % (Auto) Eos % (Auto) Baso % (Auto) Neut # (Auto) Lymph # (Auto) [place] # (Auto) Eos # (Auto) Baso # (Auto) WBC Differential Differential Comment Puncture Site Left radial Patient Temperature 98.6 O2 Saturation 96 ABG pH 7.43 H ABG pCO2 31 L ABG pO2 119 ABG HCO3 20 L ABG O2 Content 17.0 ABG Base Excess -3.4 L ABG Methemoglobin 1.3 Robert Test Present Hemoglobin 12.4 Carboxyhemoglobin 0.8 O2 Delivery Device Room air Inspired O2 21 Critical Value No POC Glucose 120 H 84 Urine Color Urine Clarity Urine pH Ur Specific [place] Urine Protein Urine Glucose (UA) Urine Ketones Urine Occult Blood Urine Nitrate Urine Bilirubin Urine Urobilinogen Ur Leukocyte Esterase Urine RBC Urine WBC Urine Bacteria Micro UA Comment Urine Culture Comments Urine Opiates Screen Ur Barbiturates Screen Ur Amphetamine Screen U Benzodiazepines Scrn Urine Cocaine Screen U Cannabinoids Screen Blood Type 02/15/18 08:47 WBC RBC Hgb Hct MCV MCH MCHC RDW Plt Count MPV Neut % (Auto) Lymph % (Auto) [place] % (Auto) Eos % (Auto) Baso % (Auto) Neut # (Auto) Lymph # (Auto) [place] # (Auto) Eos # (Auto) Baso # (Auto) WBC Differential Differential Comment Puncture Site Patient Temperature O2 Saturation ABG pH ABG pCO2 ABG pO2 ABG HCO3 ABG O2 Content ABG Base Excess ABG Methemoglobin Robert Test Hemoglobin Carboxyhemoglobin O2 Delivery Device Inspired O2 Critical Value POC Glucose 80 Urine Color Urine Clarity Urine pH Ur Specific [place] Urine Protein Urine Glucose (UA) Urine Ketones Urine Occult Blood Urine Nitrate Urine Bilirubin Urine Urobilinogen Ur Leukocyte Esterase Urine RBC Urine WBC Urine Bacteria Micro UA Comment Urine Culture Comments Urine Opiates Screen Ur Barbiturates Screen Ur Amphetamine Screen U Benzodiazepines Scrn Urine Cocaine Screen U Cannabinoids Screen Blood Type
[2018-02-15 11:42] LABS: Hemoglobin A1c 5.9 % (4.3-6.0)
[2018-02-16] MEDS: fentaNYL Citrate Inj 100 MCG/2 ML Ampul IV.PUSH PRN ×3 (00:37→05:36)
[2018-02-16] MEDS ORDERED: fentaNYL 2MCG-Bupiv 0.125% Epi 150 ML EPIDURAL ONE (08:24)
[2018-02-16] MEDS ORDERED: Oxytocin 30 Units/500ml Premix 30 UNITS/500 ML BAG IV.SIG PRN (09:53)
[2018-02-16] MEDS: Oxytocin 30 Units/500ml Premix 30 UNITS/500 ML BAG IV.CONT PRN (10:08)
[2018-02-16] MEDS ORDERED: fentaNYL Citrate Inj 100 MCG/2 ML Ampul EPIDURAL ONE (12:16)
[2018-02-16] MEDS ORDERED: fentaNYL 2MCG-Bupiv 0.125% Epi 150 ML EPIDURAL PRN (13:00)
[2018-02-16] MEDS ORDERED: Bupivacaine PF 0.25% Inj 10 ML Vial ONE ×2 (13:58→17:40)
[2018-02-16] MEDS ORDERED: Lidocaine PF 1% Inj 30 ML Vial ONE (14:38)
[2018-02-16] MEDS ORDERED: Citric Acid/Sodium Citrate Liq 30 ML UDC PO SCH (19:15)
--- NOTE | 2018-02-16 19:20 | P.OBLABOR ---
Subjective Interval history: Patient with an epidural in her second stage of labor pushing. heart rate tracing notes a baseline of 160 with moderate variability and repetitive late heart rate decelerations cervix is checked and although the patient is completely dilated she is in occiput posterior presentation and is at -1 station. Plan section for category 3 tracing, persistent occiput posterior presentation Objective Vital Signs: Vital Signs - 8 hr 02/16/18 11:53 02/16/18 12:30 02/16/18 12:48 Temperature Pulse Rate 75 74 72 Respiratory Rate 18 18 Blood Pressure 103/53 L 125/63 119/63 02/16/18 13:00 02/16/18 13:03 02/16/18 13:30 Temperature Pulse Rate 79 91 H Respiratory Rate 18 18 Blood Pressure 121/70 132/62 02/16/18 13:36 02/16/18 13:53 02/16/18 14:00 Temperature 98.6 F Pulse Rate 75 72 Respiratory Rate 18 Blood Pressure 131/87 128/62 02/16/18 14:01 02/16/18 14:16 02/16/18 14:46 Temperature Pulse Rate 81 67 86 Respiratory Rate Blood Pressure 121/64 119/48 L 119/63 02/16/18 15:01 02/16/18 15:31 02/16/18 15:54 Temperature 98.2 F Pulse Rate 80 84 76 Respiratory Rate 16 Blood Pressure 115/93 H 116/80 138/68 02/16/18 16:01 02/16/18 16:16 02/16/18 16:31 Temperature Pulse Rate 77 75 69 Respiratory Rate Blood Pressure 119/50 L 111/47 L 131/58 L 02/16/18 16:46 02/16/18 17:16 02/16/18 17:30 Temperature Pulse Rate 76 73 Respiratory Rate 16 Blood Pressure 134/59 L 125/65 02/16/18 18:13 02/16/18 18:30 02/16/18 18:49 Temperature 98.3 F Pulse Rate 294 H 93 H Respiratory Rate 16 Blood Pressure 100/61 110/65 Objective: Pelvic Exam: Cervix: [-] Dilatation: [-] Effacement: [-] Station: [-] Presentation: [-] Membranes: [intact or ruptured] Uterine Contractions: [-] FHT's: Category: [-] Baseline: [-] Reactive: [-] Variability: [-] Decels: [-] Assessment and Plan - Plan Plans for admit to labor and delivery for poorly controlled GDM at term. Risks of vaginal delivery with fetus at current size were discussed. Patient elects to proceed with induction of labor. Pt SDW Tayler Schmid and Miguel
[2018-02-16] MEDS ORDERED: ceFAZolin Inj 2,000 MG in Sodium Chlor 0.9% Inj 80 ML IV.SIG SCH (20:00)
[2018-02-16] MEDS ORDERED: Oxytocin 30 Units/500ml Premix 30 UNITS/500 ML BAG IV.SIG ONE (20:15)
--- NOTE | 2018-02-16 20:28 | P.OBDELI ---
Procedure Note Performed by: Brandee Lopez MD Procedure: Primary Low Transverse Section Indication for Delivery: Nonreassuring heart tracing, malposition ( Occiput posterior) Informed Consent Obtained: For anesthesia, For procedure Confirmed Correct: Time-out taken Anesthesia: Epidural Medication Prior to Procedure: Antibiotics, IV Monitoring During Procedure: Blood pressure monitoring, hospital manager, Pulse oximetry Urinary Catheter: To dependent drainage Sterile Preparation: Duraprep Position: Supine with wedge to left side - Operative Features Skin Incision: Pfannenstiel Uterine Incision: Low transverse w/knife / blunt ext Membranes Ruptured: Previously Presentation: Occiput posterior Status of Infant: Viable Placenta Delivered: Intact Estimated blood loss (mL): 1,500 Procedure Tolerated: Well Maternal Condition: Stable Baby Condition: Stable - Infant : Female Female A Infant Delivery Date: 02/16/18 Infant Delivery Time: 19:31 Weight: 4405 kg Delivery of : Uneventful score (1 min): 8 score (5 min): 8
[2018-02-16] MEDS ORDERED: Naloxone Inj 0.4 MG/ML Vial IV.PUSH PRN (20:33)
[2018-02-16] MEDS ORDERED: HYDROmorphone PCA Inj 6 MG/30 ML PCA.VIAL PCA PRN (20:33)
--- NOTE | 2018-02-16 20:56 | MP ---
cc: Brandee Lopez MD, Linda MD DATE OF OPERATION: 02/16/2018 PREOPERATIVE DIAGNOSES: 1. 39 weeks' gestation. 2. Gestational diabetes. 3. Persistent occiput posterior presentation. 4. Repetitive late heart rate decelerations. POSTOPERATIVE DIAGNOSES: 1. 39 weeks' gestation. 2. Gestational diabetes. 3. Persistent occiput posterior presentation. 4. Repetitive late heart rate decelerations. PROCEDURE PERFORMED: Primary low transverse section without extension. ESTIMATED BLOOD LOSS: 1500 mL MEDICATIONS: Ancef 2 g given preoperatively. COMPLICATIONS: None. DRAINS: Briones to gravity. FINDINGS: 1. Normal uterus, tubes and ovaries. 2. Clear amniotic fluid. 3. Infant female, Apgars were 8 and 8, weight was 4405 grams which is 9 pounds 11 ounces, delivered at 1931. 4. Hemostasis after the case. DESCRIPTION OF PROCEDURE: The patient was taken back to the operating room, prepped and draped in the usual sterile fashion, placed in dorsal supine position. After adequate anesthetic was obtained, Pfannenstiel incision was made into the skin and taken down to the fascia. The fascia was nicked in the midline and extended bilaterally and taken off the rectus muscles. Muscles were divided in the midline. Anterior peritoneum was entered. Vesicouterine peritoneum was noted to be away from the field and a transverse hysterotomy incision was made bluntly and extended bilaterally. The was in the occiput posterior presentation and the scalp electrode was noted to still be attached. This was removed from the patient's leg and then pulled out through the hysterotomy incision. was delivered. A 45 second cord clamping delay took place before clamping the cord, handed the baby off to the resuscitation team. Placenta was delivered intact spontaneously. Endometrial cavity was curetted with a moist laparotomy sponge. Hysterotomy incision was closed using a running locking #1 chromic suture with good hemostasis at closure. Gutters were rendered free of all blood and clot material. The muscles were plicated in the midline using #1 chromic. The fascia was closed with a number #1 PDS and a subcuticular suture of 3-0 Monocryl was placed in the skin. The patient tolerated the procedure well. She was taken back to the recovery room in good condition. MD UMAIR Calderon/ , 08:33 PM , 08:54 PM
[2018-02-16] MEDS ORDERED: HYDROmorphone PCA Inj 6 MG/30 ML PCA.VIAL PCA ONE (21:21)
[2018-02-17] MEDS ORDERED: Oxytocin 30 Units/500ml Premix 30 UNITS/500 ML BAG IV.SIG PRN (01:15)
--- NOTE | 2018-02-17 07:25 | P.PNOB ---
Subjective Post op day: 1 Interval history: 22-year-old female, , postop day #1 from for category 3 tracing. No acute events overnight. Afebrile. Patient is still in bed with Briones catheter placed, not yet ambulating. Patient has been eating ice chips with no nausea or vomiting. Denies any fever/chills. She denies any chest pain/ shortness of breath/dizziness. Minimal lochia. Objective: Vital signs stable Cardiac: Regular rate and rhythm, normal S1, S2 Pulmonary: Lungs clear to auscultation, equal bilaterally Abdomen: Bandage placed, no leakage from bandage. Incision clean and dry. Fundus firm and at the umbilicus. Assessment/plan: Continue routine postop care Plan to remove Brioens this morning, monitor urine output Encourage ambulation today Plan to advance diet Contraceptive options discussed with patient; patient would like to further discuss and consider the minipill in addition to breast-feeding at discharge. Objective Vital Signs/I&O: Vital Signs 02/16/18 08:32 02/16/18 08:59 02/16/18 09:06 Temperature Pulse Rate 120 H 82 90 Respiratory Rate 18 Blood Pressure 149/87 H 131/73 124/62 02/16/18 09:20 02/16/18 09:29 02/16/18 09:30 Temperature 98.7 F Pulse Rate 81 81 Respiratory Rate 18 Blood Pressure 123/56 L 118/60 02/16/18 09:31 02/16/18 09:46 02/16/18 09:49 Temperature Pulse Rate 80 76 Respiratory Rate 18 Blood Pressure 113/58 L 131/65 02/16/18 10:01 02/16/18 10:30 02/16/18 10:31 Temperature Pulse Rate 69 71 66 Respiratory Rate 18 Blood Pressure 134/70 130/70 135/72 02/16/18 10:46 02/16/18 10:59 02/16/18 11:16 Temperature Pulse Rate 72 67 Respiratory Rate 18 Blood Pressure 137/68 104/54 L 02/16/18 11:53 02/16/18 12:30 02/16/18 12:48 Temperature Pulse Rate 75 74 72 Respiratory Rate 18 18 Blood Pressure 103/53 L 125/63 119/63 02/16/18 13:00 02/16/18 13:03 07/05/18 13:30 Temperature Pulse Rate 79 91 H Respiratory Rate 18 18 Blood Pressure 121/70 132/62 02/16/18 13:36 02/16/18 13:53 02/16/18 14:00 Temperature 98.6 F Pulse Rate 75 72 Respiratory Rate 18 Blood Pressure 131/87 128/62 02/16/18 14:01 02/16/18 14:16 02/16/18 14:46 Temperature Pulse Rate 81 67 86 Respiratory Rate Blood Pressure 121/64 119/48 L 119/63 02/16/18 15:01 02/16/18 15:31 02/16/18 15:54 Temperature 98.2 F Pulse Rate 80 84 76 Respiratory Rate 16 Blood Pressure 115/93 H 116/80 138/68 02/16/18 16:01 02/16/18 16:16 02/16/18 16:31 Temperature Pulse Rate 77 75 69 Respiratory Rate Blood Pressure 119/50 L 111/47 L 131/58 L 02/16/18 16:46 02/16/18 17:16 02/16/18 17:30 Temperature Pulse Rate 76 73 Respiratory Rate 16 Blood Pressure 134/59 L 125/65 02/16/18 18:13 02/16/18 18:30 02/16/18 18:49 Temperature 98.3 F Pulse Rate 294 H 93 H Respiratory Rate 16 Blood Pressure 100/61 110/65 02/16/18 19:58 02/16/18 20:14 02/16/18 20:15 Temperature 98.8 F 98.4 F Pulse Rate 122 H Respiratory Rate 22 Blood Pressure 113/53 L 02/16/18 20:16 02/16/18 20:30 02/16/18 20:58 Temperature Pulse Rate 110 H 97 H 91 H Respiratory Rate 20 23 21 Blood Pressure 105/52 L 105/59 L 103/55 L 02/16/18 21:00 02/16/18 21:17 02/16/18 21:45 Temperature 98.7 F 99.3 F Pulse Rate 97 H 94 H Respiratory Rate 20 20 Blood Pressure 99/55 L 129/69 02/16/18 23:55 02/17/18 03:00 02/17/18 03:53 Temperature 100.3 F H 98.3 F Pulse Rate 94 H 84 Respiratory Rate 19 16 18 Blood Pressure 144/58 H 128/59 L Intake & Output 0702/17/18 02/17/18 18:59 06:59 18:59 Intake Total 1500 / 1500 1100 / 1100 Balance 1500 / 1500 1100 / 1100 Intake: IV 1500 / 1500 1100 / 1100 LR 1000 mL Inj 1,000 ML @ 125 1000 / 1000 1000 / 1000 mls/hr IV.CONT .Q8H [facility] Rx#: [id number] Pitocin 30 Units/NS 500 ml 500 / 500 Premix 30 units In 500 ml @ 2 MILLIUNIT/MIN 2 mls/hr IV.CONT TITRATE PRN Rx#:[id number] Ancef Inj 2,000 MG In NS Inj 80 100 / 100 ML @ 200 mls/hr IV.SIG CONSUMER LENDING MANAGER [facility] Rx#:[id number] Result Diagrams: 02/14/18 17:25 Objective Remarks: GENERAL: Well-nourished, well-developed patient. CARDIOVASCULAR: Regular rate and rhythm without murmurs, gallops, or rubs. RESPIRATORY: Breath sounds equal bilaterally. No accessory muscle use. ABDOMEN/GI: Abdomen soft, non-tender, bowel sounds present. Incision: Clean, dry and intact. Fundus: Firm, non-tender at umbilicus. GENITOURINARY: Light to moderate bleeding. EXTREMITIES: No cyanosis or edema, non-tender, without signs of DVT. Medications and IVs: Active Medications Albuterol (Albuterol Neb (Prn)) 2.5 mg NEB Q6HR NEB PRN PRN Reason: SHORTNESS OF BREATH Citric Acid/Sodium Citrate (Sod Citrate/Citric Acid Liq) 30 ml PO CONSUMER LENDING MANAGER [facility] Stop: 02/18/18 16:44 Citric Acid/Sodium Citrate (Sodium Citrate/Citric Acid Liq) 30 ml PO CONSUMER LENDING MANAGER [facility] Stop: 02/20/18 19:14 Diphenhydramine HCl (Benadryl) 25 mg PO Q6H PRN PRN Reason: for itching Diphtheria/Pertussis/Tetanus Vacc (Boostrix Vaccine Inj) 0.5 ml IM .ONCE ONE Stop: 02/17/18 16:01 Ephedrine Sulfate (Ephedrine/Ns Syringe) 10 mg IV.PUSH UNSCH PRN PRN Reason: SEE LABEL COMMENTS Stop: 02/17/18 12:16 Fentanyl Citrate (Fentanyl Inj) 50 mcg IV.PUSH Q1H PRN PRN Reason: PAIN 3-5 Last Admin: 02/15/18 21:31 Dose: 50 mcg Fentanyl Citrate (Fentanyl Inj) 100 mcg IV.PUSH Q1H PRN PRN Reason: PAIN 6-10 Last Admin: 02/16/18 05:36 Dose: 100 mcg Hydroxyzine Pamoate (Vistaril) 100 mg PO Q8H PRN PRN Reason: ANXIETY Lactated Ringer's (Lr 1000 Ml Inj) 1,000 mls @ 125 mls/hr IV.CONT .Q8H [facility] Last Admin: 02/16/18 20:29 Dose: 125 mls/hr Sodium Chloride (Ns Inj) 1,000 mls @ 100 mls/hr IV.CONT .Q10H [facility] Oxytocin (Pitocin 30 Units/Ns 500 Ml Premix) 30 units in 500 mls @ 2 mls/hr IV.CONT TITRATE PRN; Protocol PRN Reason: For induction of labor Last Admin: 02/16/18 10:08 Dose: 2 milliunit/min, 2 mls/hr Oxytocin (Pitocin 30 Units/Ns 500 Ml Premix) 30 units in 500 mls @ 2 mls/hr IV.SIG TITRATE PRN; Protocol PRN Reason: For induction of labor Fentanyl/Bupivacaine/Sodium Chlor (Fentanyl 2 Mcg-Bupiv 0.125% Epi) 150 mls @ 10 mls/hr EPIDURAL PRN PRN PRN Reason: for Labor Pain Cefazolin Sodium 2,000 mg/ (Sodium Chloride) 100 mls @ 200 mls/hr IV.SIG CONSUMER LENDING MANAGER [facility] Stop: 02/20/18 19:59 Last Infusion: 02/16/18 19:56 Dose: Infused Lactated Ringer's (Lr 1000 Ml Inj) 1,000 mls @ 150 mls/hr IV.CONT .Q6H40M [facility] Lactated Ringer's (Lr 1000 Ml Inj) 1,000 mls @ 100 mls/hr IV.CONT .Q10H [facility] Stop: 02/17/18 21:14 Oxytocin (Pitocin 30 Units/Ns 500 Ml Premix) 30 units in 500 mls @ 100 mls/hr IV.SIG PRN PRN PRN Reason: Heavy bleeding Stop: 02/18/18 01:14 Hydromorphone/Sodium Chloride (Dilaudid Psych Sales Specialist Inj) 6 mg in 30 mls @ 0 mls/hr PAYROLL ACCOUNTING MANAGER UNSCH PRN PRN Reason: per PAYROLL ACCOUNTING MANAGER parameters Last Admin: 02/16/18 21:50 Dose: 0 mls/hr Lidocaine HCl (Xylocaine 1% Inj) 0.1 ml INFILTRATN PRN PRN PRN Reason: For IV start Stop: 02/17/18 16:43 Measles/Mumps/Rubella Vaccine Live (M-M-R Ii Vaccine Inj) 0.5 ml SQ .ONCE ONE Stop: 02/17/18 16:01 Mineral Oil (Muri-Lube Oil) 10 ml TOPICAL PRN PRN PRN Reason: PRN perineal massage Miscellaneous Information (Misc Information) 1 each OTHER UNSCH PRN PRN Reason: SEE LABEL COMMENTS Stop: 02/17/18 12:16 Miscellaneous Information (Misc Information) 1 each OTHER UNSCH PRN PRN Reason: SEE LABEL COMMENTS Stop: 02/17/18 12:16 Naloxone HCl (Narcan Inj) 0.4 mg IV.PUSH PRN PRN PRN Reason: SEE LABEL COMMENTS Oxycodone/Acetaminophen (Percocet 5/325 Mg) 1 tab PO Q4H PRN PRN Reason: PAIN SCALE 3 TO 5 Oxycodone/Acetaminophen (Percocet 5/325 Mg) 2 tab PO Q4H PRN PRN Reason: PAIN SCALE 6 TO 10 Sodium Chloride (Ns Flush) 2 ml IV.FLUSH PRN PRN PRN Reason: FLUSH AFTER USING IV ACCESS Sodium Chloride (Ns Flush) 2 ml IV.FLUSH BID [place] Sodium Chloride (Ns Flush) 2 ml IV.FLUSH PRN PRN PRN Reason: FLUSH AFTER USING IV ACCESS Assessment and Plan - Diagnosis (1) Gestational diabetes mellitus (GDM) Code(s): O24.419 - Gestational diabetes mellitus in , unspecified control Status: Acute Plan: Admitting for delivery due to poorly controlled GDM. Cervidil placed 5:50PM. Cervix 1-2/50/-2. FHT Cat 1 with baseline 155, reactive, moderate, and no decels 1. IUP with induction of labor -Monitor and toco -Cat 1 tracing Pt DW Tayler Schmid and Shakila - Plan Plans for admit to labor and delivery for poorly controlled GDM at term. Risks of vaginal delivery with fetus at current size were discussed. Patient elects to proceed with induction of labor. Pt SDW Tayler Schmid and [place] (1) Gestational diabetes mellitus (GDM) Qualifiers: Trimester: third trimester
[2018-02-17 08:28] LABS: Baso % (Auto) 0.2 % (0.0-2.0); Hematocrit 34.9 % (35.0-46.0); Hemoglobin 11.5 gm/dL (11.6-15.3); Lymph # (Auto) 0.9 th/mm3 (1.0-4.8); Lymph % (Auto) 5.8 % (9.0-44.0); Mean Corpuscular Hemoglobin 28.7 pg (27.0-34.0); Mean Corpuscular Volume 87.1 fL (80.0-100.0); Mean Platelet Volume 9.2 fL (7.0-11.0); Mono # (Auto) 0.7 th/mm3 (0.0-0.9); Mono % (Auto) 4.6 % (0.0-8.0); Neut # (Auto) 14.3 th/mm3 (1.8-7.7); Neut % (Auto) 89.4 % (16.0-70.0); Platelet Count 192 th/mm3 (150-450); Red Blood Count 4.01 mil/mm3 (4.00-5.30); Red Cell Distribution Width 13.8 % (11.6-17.2)
[2018-02-17] MEDS ORDERED: Measles/Mumps/Rubella Vaccine Inj 0.5 ML Vial SQ ONE (16:00)
[2018-02-17] MEDS ORDERED: Diphtheria/Tetanus/Pertussis Vaccine Inj 0.5 ML Syringe IM ONE (16:00)
[2018-02-18] MEDS ORDERED: Senna/Docusate Sodium 8.6/50 MG Tablet PO PRN (09:55)
--- NOTE | 2018-02-18 12:20 | P.PNOB ---
Subjective Post op day: 2 Interval history: Ms. Liriano is a 22yo on POD2 for arrest of labor at 39/2. Yesterday at noon the patient had a temp of 100.9, it has since resolved and was most recently 98.3. She reports only minimal abdominal pain but not localized to fundal area. She reports light bleeding about equivalent to a period. She denies any difficulties with urination. She has not had a bowel movement but she has passed gas. She has been breast feeding but vocalizes concern about adequacy of volume of breast milk. She denies chest pain, difficulty breathing, or calf pain. Objective Vital Signs/I&O: Vital Signs 02/17/18 20:00 02/18/18 08:00 Temperature 98.3 F 97.7 F Pulse Rate 108 H 88 Respiratory Rate 18 20 Blood Pressure 92/47 L 120/63 Result Diagrams: 02/17/18 08:05 Objective Remarks: GENERAL: Well-nourished, well-developed patient. CARDIOVASCULAR: Regular rate and rhythm without murmurs, gallops, or rubs. RESPIRATORY: Breath sounds equal bilaterally. No accessory muscle use. ABDOMEN/GI: Abdomen soft, non-tender, bowel sounds present. Incision: Clean, dry and intact. Fundus: Firm, non-tender about 2 cm below umbilicus. GENITOURINARY: Light to moderate bleeding. EXTREMITIES: Trace edema bilaterally. No cyanosis, non-tender, without signs of DVT. Medications and IVs: Active Medications Albuterol (Albuterol Neb (Prn)) 2.5 mg NEB Q6HR NEB PRN PRN Reason: SHORTNESS OF BREATH Citric Acid/Sodium Citrate (Sod Citrate/Citric Acid Liq) 30 ml PO NURSING EDUCATION CONSULTANT [facility] Stop: 02/18/18 16:44 Citric Acid/Sodium Citrate (Sodium Citrate/Citric Acid Liq) 30 ml PO NURSING EDUCATION CONSULTANT [facility] Stop: 02/20/18 19:14 Diphenhydramine HCl (Benadryl) 25 mg PO Q6H PRN PRN Reason: for itching Fentanyl Citrate (Fentanyl Inj) 50 mcg IV.PUSH Q1H PRN PRN Reason: PAIN 3-5 Last Admin: 02/15/18 21:31 Dose: 50 mcg Fentanyl Citrate (Fentanyl Inj) 100 mcg IV.PUSH Q1H PRN PRN Reason: PAIN 6-10 Last Admin: 02/16/18 05:36 Dose: 100 mcg Hydroxyzine Pamoate (Vistaril) 100 mg PO Q8H PRN PRN Reason: ANXIETY Lactated Ringer's (Lr 1000 Ml Inj) 1,000 mls @ 125 mls/hr IV.CONT .Q8H [facility] Last Admin: 02/16/18 20:29 Dose: 125 mls/hr Sodium Chloride (Ns Inj) 1,000 mls @ 100 mls/hr IV.CONT .Q10H [facility] Oxytocin (Pitocin 30 Units/Ns 500 Ml Premix) 30 units in 500 mls @ 2 mls/hr IV.CONT TITRATE PRN; Protocol PRN Reason: For induction of labor Last Admin: 02/16/18 10:08 Dose: 2 milliunit/min, 2 mls/hr Oxytocin (Pitocin 30 Units/Ns 500 Ml Premix) 30 units in 500 mls @ 2 mls/hr IV.SIG TITRATE PRN; Protocol PRN Reason: For induction of labor Fentanyl/Bupivacaine/Sodium Chlor (Fentanyl 2 Mcg-Bupiv 0.125% Epi) 150 mls @ 10 mls/hr EPIDURAL PRN PRN PRN Reason: for Labor Pain Cefazolin Sodium 2,000 mg/ (Sodium Chloride) 100 mls @ 200 mls/hr IV.SIG NURSING EDUCATION CONSULTANT [facility] Stop: 02/20/18 19:59 Last Infusion: 02/16/18 19:56 Dose: Infused Lactated Ringer's (Lr 1000 Ml Inj) 1,000 mls @ 150 mls/hr IV.CONT .Q6H40M [facility] Mineral Oil (Muri-Lube Oil) 10 ml TOPICAL PRN PRN PRN Reason: PRN perineal massage Naloxone HCl (Narcan Inj) 0.4 mg IV.PUSH PRN PRN PRN Reason: SEE LABEL COMMENTS Oxycodone/Acetaminophen (Percocet 5/325 Mg) 1 tab PO Q4H PRN PRN Reason: PAIN SCALE 3 TO 5 Last Admin: 02/18/18 07:54 Dose: 1 tab Oxycodone/Acetaminophen (Percocet 5/325 Mg) 2 tab PO Q4H PRN PRN Reason: PAIN SCALE 6 TO 10 Last Admin: 02/17/18 15:46 Dose: 2 tab Senna/Docusate Sodium (Azul-Colace) 1 tab PO BID PRN PRN Reason: CONSTIPATION Sodium Chloride (Ns Flush) 2 ml IV.FLUSH PRN PRN PRN Reason: FLUSH AFTER USING IV ACCESS Sodium Chloride (Ns Flush) 2 ml IV.FLUSH BID [place] Sodium Chloride (Ns Flush) 2 ml IV.FLUSH PRN PRN PRN Reason: FLUSH AFTER USING IV ACCESS Assessment and Plan - Plan 22yo on POD2 at 39/2 for arrest of labor complicated by GDM. 1. Post op fever- patient denies any difficulties with breathing, calf pain, dysuria, or intense abdominal pain. Physical exam showed lungs CTAB, non tender umbilical fundus, no discharge or erythema around incisional site. No calf pain or significant leg swelling. WBC post op was elevated but likely due to laboring state. Continue to monitor for signs of developing endometritis. 2. POD2- continue routine care, continue pain control with percocet 5 /325 q4h PRN. The patient has the systems development consultant's number for assistance with breast feeding. 3. Constipation- azul colace ordered. Patient encouraged to stay well hydrated and get out of bed and move. Patient to follow up with her OB provider in 1 week for incision check She elects for oral contraceptives for control option and will discuss with her OB provider about progestin pill Pt SDW Tayler Eastman and Nancy - Attending Attestation The exam, history, and the medical decision-making described in the above note were completed with the assistance of the resident physician. I reviewed and agree with the findings presented. I attest that I had a [id number] encounter with the patient on the same day, and personally performed and documented my assessment and findings in the medical record.
--- NOTE | 2018-02-19 08:15 | P.PNOB ---
Subjective Post op day: 3 Interval history: Ms. Liriano is a 22yo on POD3 for arrest of labor at 39/2 complicated by post op fever. She has remained afebrile since noon on Tuesday. She reports diffuse minimal abdominal pain. She reports light bleeding about equivalent to a period, lessening with no clots. She denies any difficulties with urination. She has not had a bowel movement but she has passed gas. She has been breast feeding and feels as if her volume is getting more adequate. She denies dizziness, chest pain, difficulty breathing, or calf pain. She elects for oral contraceptives for control. Objective Vital Signs/I&O: Vital Signs 02/18/18 20:00 02/19/18 07:14 Temperature 98.4 F 98.3 F Pulse Rate 80 88 Respiratory Rate 18 18 Blood Pressure 114/74 119/64 Result Diagrams: 02/17/18 08:05 Objective Remarks: GENERAL: Well-nourished, well-developed patient. CARDIOVASCULAR: Regular rate and rhythm without murmurs, gallops, or rubs. RESPIRATORY: Breath sounds equal bilaterally. No accessory muscle use. ABDOMEN/GI: Abdomen soft, non-tender, bowel sounds present. Incision: Clean, dry and intact. Fundus: Firm, non-tender about 4 cm below umbilicus. GENITOURINARY: Light to moderate bleeding. EXTREMITIES: Trace edema bilaterally, non pitting. No cyanosis, non-tender, without signs of DVT. Medications and IVs: Active Medications Albuterol (Albuterol Neb (Prn)) 2.5 mg NEB Q6HR NEB PRN PRN Reason: SHORTNESS OF BREATH Citric Acid/Sodium Citrate (Sodium Citrate/Citric Acid Liq) 30 ml PO HOSPITAL CHIEF EXECUTIVE OFFICER [place] Stop: 02/20/18 19:14 Diphenhydramine HCl (Benadryl) 25 mg PO Q6H PRN PRN Reason: for itching Fentanyl Citrate (Fentanyl Inj) 50 mcg IV.PUSH Q1H PRN PRN Reason: PAIN 3-5 Last Admin: 02/15/18 21:31 Dose: 50 mcg Fentanyl Citrate (Fentanyl Inj) 100 mcg IV.PUSH Q1H PRN PRN Reason: PAIN 6-10 Last Admin: 02/16/18 05:36 Dose: 100 mcg Hydroxyzine Pamoate (Vistaril) 100 mg PO Q8H PRN PRN Reason: ANXIETY Lactated Ringer's (Lr 1000 Ml Inj) 1,000 mls @ 125 mls/hr IV.CONT .Q8H [facility] Last Admin: 02/16/18 20:29 Dose: 125 mls/hr Sodium Chloride (Ns Inj) 1,000 mls @ 100 mls/hr IV.CONT .Q10H [facility] Oxytocin (Pitocin 30 Units/Ns 500 Ml Premix) 30 units in 500 mls @ 2 mls/hr IV.CONT TITRATE PRN; Protocol PRN Reason: For induction of labor Last Admin: 02/16/18 10:08 Dose: 2 milliunit/min, 2 mls/hr Oxytocin (Pitocin 30 Units/Ns 500 Ml Premix) 30 units in 500 mls @ 2 mls/hr IV.SIG TITRATE PRN; Protocol PRN Reason: For induction of labor Fentanyl/Bupivacaine/Sodium Chlor (Fentanyl 2 Mcg-Bupiv 0.125% Epi) 150 mls @ 10 mls/hr EPIDURAL PRN PRN PRN Reason: for Labor Pain Cefazolin Sodium 2,000 mg/ (Sodium Chloride) 100 mls @ 200 mls/hr IV.SIG HOSPITAL CHIEF EXECUTIVE OFFICER [facility] Stop: 02/20/18 19:59 Last Infusion: 02/16/18 19:56 Dose: Infused Lactated Ringer's (Lr 1000 Ml Inj) 1,000 mls @ 150 mls/hr IV.CONT .Q6H40M [facility] Mineral Oil (Muri-Lube Oil) 10 ml TOPICAL PRN PRN PRN Reason: PRN perineal massage Naloxone HCl (Narcan Inj) 0.4 mg IV.PUSH PRN PRN PRN Reason: SEE LABEL COMMENTS Oxycodone/Acetaminophen (Percocet 5/325 Mg) 1 tab PO Q4H PRN PRN Reason: PAIN SCALE 3 TO 5 Last Admin: 02/18/18 15:08 Dose: 1 tab Oxycodone/Acetaminophen (Percocet 5/325 Mg) 2 tab PO Q4H PRN PRN Reason: PAIN SCALE 6 TO 10 Last Admin: 02/19/18 07:15 Dose: 2 tab Senna/Docusate Sodium (Azul-Colace) 1 tab PO BID PRN PRN Reason: CONSTIPATION Last Admin: 02/19/18 00:07 Dose: 1 tab Sodium Chloride (Ns Flush) 2 ml IV.FLUSH PRN PRN PRN Reason: FLUSH AFTER USING IV ACCESS Sodium Chloride (Ns Flush) 2 ml IV.FLUSH BID [place] Sodium Chloride (Ns Flush) 2 ml IV.FLUSH PRN PRN PRN Reason: FLUSH AFTER USING IV ACCESS Assessment and Plan - Diagnosis (1) Gestational diabetes mellitus (GDM) Code(s): O24.419 - Gestational diabetes mellitus in , unspecified control Status: Acute Plan: r - Plan 22yo on POD3 at 39/2 for arrest of labor complicated by GDM. 1. POD3- patient will be d/c home today. She will be given RX for percocet 5/ 325 and ibuprofen 800mg for post op pain. She was counselled to maintain pelvic rest for 6 weeks, nothing in the vagina, no sexual intercourse, no tampons. Showers vs baths for the next 6 weeks. 2. Post op fever- resolved, patient has been afebrile for >24 hours. Physical exam shows no sign of DVT, fundal tenderness, incisional infection, or pneumonia. 3. Constipation- patient counselled that she can take OTC stool softener. Patient encouraged to stay well hydrated and get out of bed and move. Patient to follow up with Dr Lopez in 1 week for incision check and then in 6 weeks for post care She elects for oral contraceptives for control option and will discuss about progestin pill Pt SDW Tayler Lopez and Nancy (1) Gestational diabetes mellitus (GDM) Qualifiers: Trimester: third trimester
--- NOTE | 2018-02-21 17:05 | P.PN ---
Subjective Interval history: The patient presents due to an error in her percocet rx. She was discharged home on 02/19/18 with percocet 5/325 mg written for quantity of #20 with instructions to take 1 tablet every 4 hours. She was unable to fill at the pharmacy because this is a greater than 3 day supply. She was searched on [place] and no controlled substance filled since 2015. Old Rx was destroyed and discarded and Rx written for percocet 5/325 #18 to take 1 tablet every 4-6 hours as needed for pain. Results - Labs CBC & Chem 7: 02/17/18 08:05
== END 2018-02-19 13:18 | disposition home or self-care (01) ==
LOC: HOBED 12:54 → H2E 15:34 → H1EA 02-16 21:24
PROVIDERS: ADMIT Obstetrics & Gynecology; ATTEND Obstetrics & Gynecology